=== PATIENT | female | born 1995 | race Caucasian/White ===

== ENCOUNTER 2019-07-25 11:06 | Emergency (ER) | payer OTHER ==
[2019-07-25] MEDS ORDERED: PROMETHAZINE 25 MG/ML VIAL ONE (12:26)
[2019-07-25] MEDS ORDERED: NA CHLORIDE 0.9% 1,000 ML ONE (12:26)
[2019-07-25 12:34] LABS: Basophils % 0.6 % (0-1.3); Hematocrit 41.9 % (36.0-45.0); Lymphocytes % 16.8 % (15.3-44.8); MPV 7.4 fL (7.6-11.3); RBC Red Blood Cell Count 4.87 M/uL (3.86-4.86)
[2019-07-25 12:47] LABS: Urine Bacteria <20 /HPF (<20); Urine RBC <5 /HPF (NONE SEEN)
[2019-07-25 12:48] LABS: ALT/SGPT 23 U/L (12-78); AST/SGOT 11 U/L (15-37); Albumin 3.6 g/dL (3.4-5.0); Alkaline Phosphatase 50 U/L (45-117); BUN Blood Urea Nitrogen 9 mg/dL (7-18); Bicarbonate 26 mmol/L (21-32); Bilirubin Direct 0.2 mg/dL (0-0.2); Bilirubin Total 0.7 mg/dL (0.2-1.0); Glucose Level 83 mg/dL (74-106); Potassium 3.7 mmol/L (3.5-5.1); Protein, Total 8.1 g/dL (6.4-8.2); Sodium Level 138 mmol/L (136-145)
[2019-07-25 12:49] LABS: Urine Blood NEGATIVE (NEG); Urine Glucose NEGATIVE (NEG); Urine Protein NEGATIVE (NEG); Urine Specific Gravity 1.025 (1.005-1.030); Urine pH 5.5 (5.0-7.0)
[2019-07-25 12:50] LABS: Urine Culture Reflex Order REFLEXED
--- NOTE | 2019-07-25 13:26 | ER ---
Nurse's Notes [facility] Name: Lyn Bautista Age: 24 yrs Sex: Female : 1995 Arrival Date: 07/25/2019 Time: 11:08 Bed 28 Private MD: Diagnosis: Acute bronchitis;Nausea and vomiting Presentation: 07/25 11:40 Presenting complaint: Patient states: Cough and congestion x 5 days ago with yellowish ca1 phlegm. Throat hurting and last night I started to throw up. Denies fever at this time. Took over the counter cough and colds medications. Pt vomiting in Triage. 9wks. Transition of care: patient was not received from another setting of care. Onset of symptoms was July 25, 2019. Risk Assessment: Do you want to hurt yourself or someone else? Patient reports no desire to harm self or others. Initial Sepsis Screen: Does the patient meet any 2 criteria? No. Patient's initial sepsis screen is negative. Does the patient have a suspected source of infection? No. Patient's initial sepsis screen is negative. Care prior to arrival: None. 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 - Social history:: Smoking status: Patient/guardian denies using tobacco. - Ebola Screening: : Patient negative for fever greater than or equal to 101.5 degrees Fahrenheit, and additional compatible Ebola Virus Disease symptoms Patient denies exposure to infectious person Patient denies travel to an Ebola-affected area in the 21 days before illness onset No symptoms or risks identified at this time. Screenin:00 Abuse screen: Denies threats or abuse. Nutritional screening: No deficits noted. aa5 Tuberculosis screening: No symptoms or risk factors identified. Fall Risk None identified. Assessment: 12:00 General: Appears uncomfortable, Behavior is calm, cooperative, Reports positive aa5 test yesterday and states "I think I am probably about 9 weeks " . Pain: Denies pain. Neuro: Level of Consciousness is awake, alert, obeys commands, Oriented to person, place, time, situation. Cardiovascular: Heart tones S1 S2 present Rhythm is regular. Respiratory: Reports cough that is productive, Airway is patent Respiratory effort is even, unlabored, Respiratory pattern is regular, symmetrical, Breath sounds are clear bilaterally. GI: Abdomen is round Bowel sounds present X 4 quads. Abd is soft and non tender X 4 quads. 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 : Denies burning with urination, vaginal bleeding. EENT: Reports nasal congestion. Derm: Skin is pink, warm \\T\\ dry. Musculoskeletal: Range of motion: intact in all extremities. 12:45 Reassessment: Patient is alert, oriented x 3, equal unlabored respirations, skin aa5 warm/dry/pink. Patient states feeling better. General: Appears comfortable. 13:50 Reassessment: Patient is alert, oriented x 3, equal unlabored respirations, skin aa5 warm/dry/pink. Patient states feeling better. Vital Signs: 11:46 BP 145 / 96; Pulse 111; Resp 16 S; Temp 98(TE); Pulse Ox 100% on R/A; Weight 111.13 kg ca1 (R); Height 5 ft. 1 in. (154.94 cm) (R); Pain 6/10; 13:00 BP 138 / 88; Pulse 92; Resp 16 S; Temp 98.0(TE); Pulse Ox 98% on R/A; Pain 0/10; aa5 11:46 Body Mass Index 46.29 (111.13 kg, 154.94 cm) ca1 ED Course: 11:08 Patient arrived in ED. mr 11:44 Triage completed. ca1 11:46 Arm band placed on right wrist. ca1 11:50 Kishan Emery FNP-C is PHCP. la1 11:50 Tejas Ayala MD is Attending Physician. la1 11:55 Patient has correct armband on for positive identification. Bed in low position. Call aa5 light in reach. Side rails up X 1. 11:56 Keisha Curiel, RN is Primary Nurse. aa5 12:30 Initial lab(s) drawn, by me, sent to lab. Flu and/or RSV swab sent to lab. Inserted aa5 saline lock: 20 gauge in right antecubital area, using aseptic technique. Blood collected. 13:50 No provider procedures requiring assistance completed. IV discontinued, intact, aa5 bleeding controlled, No redness/swelling at site. Pressure dressing applied. Administered Medications: 12:30 Drug: NS 0.9% 1000 ml Route: IV; Rate: 1000 ml; Site: right antecubital; aa5 13:50 Follow up: IV Status: Completed infusion; IV Intake: 1000ml aa5 12:30 Drug: Phenergan 12.5 mg Route: IVP; Site: right antecubital; aa5 12:45 Follow up: Response: No adverse reaction aa5 Intake: 13:50 IV: 1000ml; Total: 1000ml. aa5 Outcome: 13:26 Discharge ordered by MD. la1 13:50 Discharged to home ambulatory. aa5 13:50 Condition: good 13:50 Discharge instructions given to patient, Instructed on discharge instructions, follow up and referral plans. medication usage, Demonstrated understanding of instructions, follow-up care, medications, Prescriptions given X 1. 13:56 Patient left the ED. aa5 Signatures: Regina Escamilla mr CurielKeisha, RN RN aa5 Kishan Emery, REVENUE INTEGRITY ANALYST-C REVENUE INTEGRITY ANALYST-Cla1 Zahra Arteaga RN RN ca1 Corrections: (The following items were deleted from the chart) 11:47 11:40 Presenting complaint: Patient states: Cough and congestion x 5 days ago with ca1 yellowish phlegm. Throat hurting and last night I started to throw up. Denies fever at this time. Took over the counter cough and colds medications. Pt vomiting in Triage ca1
--- NOTE | 2019-07-25 13:27 | EDPHYS ---
Physician Documentation [facility] Name: Lyn Bautista Age: 24 yrs Sex: Female : 1995 Arrival Date: 07/25/2019 Time: 11:08 Bed 28 Private MD: ED Physician Tejas Ayala HPI: 07/25 12:05 This 24 yrs old Female presents to ER via Ambulatory with complaints of Flu la1 Symptoms. 12:05 Onset: The symptoms/episode began/occurred 5 day(s) ago. Associated signs and symptoms: la1 Pertinent positives: cough, nasal discharge, vomiting, Pertinent negatives: abdominal pain, earache. pt reports she has had congestion and cough for the last 5 days that has progressed to nausea and vomiting, recently found out that she is , estimated by dates to be about 9 weeks, denies vaginal discharge or bleeding. . 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 - Social history:: Smoking status: Patient/guardian denies using tobacco. - Ebola Screening: : Patient negative for fever greater than or equal to 101.5 degrees Fahrenheit, and additional compatible Ebola Virus Disease symptoms Patient denies exposure to infectious person Patient denies travel to an Ebola-affected area in the 21 days before illness onset No symptoms or risks identified at this time. ROS: 12:08 Constitutional: Negative for fever, chills, and weight loss, Eyes: Negative for injury, la1 pain, redness, and discharge, ENT: + for nasal discharge Neck: Negative for injury, pain, and swelling, Respiratory: + for cough, SOB Abdomen/GI: + for abd pain, vomiting Back: Negative for injury and pain, : Negative for injury, bleeding, discharge, and swelling, MS/Extremity: Negative for injury and deformity, Neuro: Negative for headache, weakness, numbness, tingling, and seizure. Exam: 12:08 Constitutional: This is a well developed, well nourished patient who is awake, alert, la1 and in no acute distress. Head/Face: Normocephalic, atraumatic. Eyes: Pupils equal round and reactive to light, extra-ocular motions intact. Periorbital areas with no swelling, redness, or edema. ENT: Oropharynx with no redness, swelling, or masses, exudates, or evidence of obstruction, uvula midline. Mucous membranes moist. Neck: Supple, full range of motion without nuchal rigidity, or vertebral point tenderness. No Meningismus. Chest/axilla: Normal chest wall appearance and motion. Nontender with no deformity. No lesions are appreciated. Cardiovascular: Regular rate and rhythm with a normal S1 and S2. No gallops, murmurs, or rubs. Normal PMI, no JVD. No pulse deficits. Respiratory: Lungs have equal breath sounds bilaterally, clear to auscultation No rales, rhonchi or wheezes noted. No increased work of breathing, no retractions or nasal flaring. Abdomen/GI: Soft, non-tender, with normal bowel sounds. No distension or tympany. No guarding or rebound. No evidence of tenderness throughout. Back: No spinal tenderness. No costovertebral tenderness. Full range of motion. Skin: Warm, dry with normal turgor. Normal color with no rashes, no lesions, and no evidence of cellulitis. MS/ Extremity: Pulses equal, no cyanosis. Neurovascular intact. Full, normal range of motion. Vital Signs: 11:46 BP 145 / 96; Pulse 111; Resp 16 S; Temp 98(TE); Pulse Ox 100% on R/A; Weight 111.13 kg ca1 (R); Height 5 ft. 1 in. (154.94 cm) (R); Pain 6/10; 13:00 BP 138 / 88; Pulse 92; Resp 16 S; Temp 98.0(TE); Pulse Ox 98% on R/A; Pain 0/10; aa5 11:46 Body Mass Index 46.29 (111.13 kg, 154.94 cm) ca1 MDM: 11:50 Patient medically screened. la1 13:23 Data reviewed: vital signs, nurses notes, lab test result(s), Beta HCG: CBC, la1 electrolytes, urinalysis, and as a result, I will discharge patient. Data interpreted: Pulse oximetry: on room air is 100 %. Interpretation: normal. Counseling: I had a detailed discussion with the patient and/or guardian regarding: the historical points, exam findings, and any diagnostic results supporting the discharge/admit diagnosis, lab results, the need for outpatient follow up, a family practitioner, an OB/Gyne specialist. Medication response: phenergan. Response to treatment: the patient's symptoms have markedly improved after treatment. ED course: Pt feeling much better after phenergan, will FU with OB, denies any abd pain, bleeding, or discharge, no UTI.. 07/25 11:57 Order name: CBC with Diff; Complete Time: 13:00 la1 07/25 11:57 Order name: BMP; Complete Time: 13:00 la1 07/25 11:57 Order name: Urine Microscopic Only; Complete Time: 13:00 la1 07/25 11:57 Order name: Flu; Complete Time: 13:00 la1 07/25 11:57 Order name: LFT's; Complete Time: 13:00 la1 07/25 12:29 Order name: Urine Dipstick--Ancillary (enter results); Complete Time: 13:00 07/25 11:57 Order name: Urine Dipstick-Ancillary (obtain specimen); Complete Time: 12:22 la1 07/25 11:57 Order name: Urine Test (obtain specimen); Complete Time: 12:22 la1 07/25 12:29 Order name: Urine --Ancillary (enter results); Complete Time: 13:00 07/25 12:50 Order name: Urine Culture EDNM 07/25 12:53 Order name: Urine Culture EDNM 07/25 11:57 Order name: SL; Complete Time: 12:22 la Administered Medications: 12:30 Drug: NS 0.9% 1000 ml Route: IV; Rate: 1000 ml; Site: right antecubital; aa5 13:50 Follow up: IV Status: Completed infusion; IV Intake: 1000ml aa5 12:30 Drug: Phenergan 12.5 mg Route: IVP; Site: right antecubital; aa5 12:45 Follow up: Response: No adverse reaction aa5 Disposition: 14:30 Co-signature as Attending Physician, Tejas Ayala MD. rn Disposition: 07/25/19 13:26 Discharged to Home. Impression: Acute bronchitis, Nausea and vomiting. - Condition is Stable. - Discharge Instructions: Acute Bronchitis, Adult, Nausea and Vomiting, Adult, Rehydration, Adult. - Prescriptions for promethazine 25 mg Oral Tablet - take 1 tablet by ORAL route every 6 hours As needed; 20 tablet. - Work release form, Medication Reconciliation Form, Thank You Letter form. - Follow up: Private Physician; When: 2 - 3 days; Reason: Recheck today's complaints, Re-evaluation by your physician. Follow up: Emergency Department; When: As needed; Reason: Trouble breathing, Worsening of condition, severe abd pain, vaginal bleeding. - Problem is new. - Symptoms have improved. Signatures: Dispatcher [employer] EDMS Tejas Ayala MD MD rn Calderon, Audri RN RN aa5 Kishan Emery, MICROMATIC HONE OPERATOR-C MICROMATIC HONE OPERATOR-Cla1 Zahra Arteaga RN RN ca1 Corrections: (The following items were deleted from the chart) 12:46 11:57 FHT's ordered. la1 aa5 13:56 13:26 07/25/2019 13:26 Discharged to Home. Impression: Acute bronchitis; Nausea and aa5 vomiting. Condition is Stable. Forms are Medication Reconciliation Form, Thank You Letter, Antibiotic Education, Prescription Opioid Use. Follow up: Private Physician; When: 2 - 3 days; Reason: Recheck today's complaints, Re-evaluation by your physician. Follow up: Emergency Department; When: As needed; Reason: Trouble breathing, Worsening of condition, severe abd pain, vaginal bleeding. Problem is new. Symptoms have improved. la1
== END 2019-07-25 13:56 | disposition home or self-care (01) ==
LOC: ER 11:06
DX: O21.9 Vomiting of pregnancy, unspecified (principal); Z3A.09 9 weeks gestation of pregnancy; Z88.2 Allergy status to sulfonamides; Z88.5 Allergy status to narcotic agent; Z88.8 Allergy status to other drugs, medicaments and biological substances
CPT/HCPCS: 96361; 87088; 85025; 87086; 80048; 36415; 81025; 80076; 87804 ×2; 96374; 99284; J2550; J7030; 81003; 81015

== ENCOUNTER 2019-10-09 17:58 | Emergency (ER) | payer BC, OTHER ==
--- OUTSIDE RECORDS SUMMARY | 2019-10-09 18:14 | XMS REPORT | Encounter Summary ---
:1995 Author Reason for Visit OB 16 week visit; NOB Instructions 1. screening US, obstetric, limited US, obstetric, maternal evaluation + anatomy - Please schedule in 4 weeks afp (alpha-fetoprotein) panel, maternal screen, serum urinalysis, dipstick pap, IG + reflex HPV if ASC-U CT + NG DNA, PCR, unspecified specimen HbA1c (hemoglobin A1c), blood 2. Mild hyperemesis-not delivered folic acid 1 mg tablet Reglan 10 mg tablet 3. Elevated blood-pressure reading without diagnosis of hypertension elevated blood pressure: care instructions CMP, serum or plasma protein, total, 24-hour urine CBC w/ auto diff Discussion Note: None recorded. Plan of Care Reminders Provider Appointments Follow up OB Sadaf Stahl 11/03/2019 MD Jerrod 10:15AM Lab Afp [facility] (Alpha-fetoprotein) 10/06/2019 [facility] (Lab) Panel, Maternal Screen, Serum Urinalysis, In-House Results Dipstick 10/06/2019 Pap, IG + Medical Diagnostic Reflex HPV If ASC-U 10/06/2019 [facility] (Mdlab) CT + NG DNA, Medical Diagnostic PCR, Unspecified 10/06/2019 [facility] (Mdlab) Specimen CMP, Serum or [facility] Plasma 10/06/2019 [facility] (Labs) (Xray) Protein, [facility] Total, 24-Hour Urine 10/06/2019 [facility] (Labs) (Xray) CBC W/ Auto [facility] Diff 10/06/2019 [facility] (Labs) (Xray) HbA1C [facility] (Hemoglobin a1C), Blood 10/06/2019 [facility] (Labs) (Xray) Referral None recorded. Procedures None recorded. Surgeries None recorded. Imaging US, Obstetric, In-House Results Limited 10/06/2019 US, Obstetric, [facility] Maternal 10/06/2019 [facility] Evaluation + (Scheduling) Anatomy Medications Name Start Date Children's Multi-Vitamin Gummies 200 mcg chewable tablet Take by oral route. folic acid 1 mg tablet Take 1 tablet every day by oral route as directed for 30 days. Prenatabs Rx 29 mg iron-1 mg tablet Reglan 10 mg tablet Take 1 tablet 4 times a day by oral route as directed for 15 days. Medications Administered None recorded. Vitals Height Weight BMI Blood Pressure 5 ft 1 in 249.7 lbs 47.2 kg/m2 (1) 146/94 mm[Hg] (2) 149/91 mm[Hg] Results Lab Results Date Name Specimen Result Interpretation Description Value Range Status Address 09/21/2019 CBC W/ Auto Normal White 8.4 K/uL 4.0-11.5 Final [facility] Diff Blood Count K/uL [facility] (Lab): [address] [place] [address] Normal Red Blood 4.65 M/uL 3.80-5.20 Final [facility] Count M/uL [facility] (Lab): [address] [place] [address] Normal Hemoglobin 14.0 g/dL 10.5-15.7 Final [facility] g/dL [facility] (Lab): [address] [place] [address] Normal Hematocrit 40.2 % 34.0-50.0 % Final [facility] (Lab): [address] [place] [address] Normal Mean 86.5 fL 86-100 fL Final [facility] Corpuscular [facility] Volume [facility] (Lab): [address] [place] [address] Normal Mean 30.1 pg 26.2-33.4 pg Final [facility] Corpuscular Regional Hemoglobin [facility] (Lab): [address] [place] [address] High Mean 34.8 g/dL 30-34 g/dL Final [facility] HGB [facility] (Lab): [address] [place] [address] Normal Red Cell 13.3 % 12.0-15.5 % Final [facility] Distributio [facility] n [facility] (Lab): [address] [place] [address] Normal Platelet 330 K/uL 165-450 K/uL Final [facility] Count [facility] (Lab): [address] [place] [address] Normal Mean 9.5 fL 9.4-12.6 fL Final [facility] Platelet [facility] (Lab): [address] [place] [address] Normal Neutrophil 72.6 % 44.4-80.1 % Corrected [facility] s % [facility] (Lab): [address] [place] [address] Normal Ig% 0.2 % 0.0-0.4 % Corrected [facility] (Lab): [address] [place] [address] Normal Lymphocyte 19.7 % 10.0-50.0 % Final [facility] % [facility] (Lab): [address] [place] [address] [place] % 6.7 % 3.6-12.0 % Final [facility] (Lab): [address] [place] [address] Normal Eos % 0.6 % 0.0-5.4 % Final [facility] (Lab): [address] [place] [address] Normal Basophil % 0.2 % 0.1-1.2 % Final [facility] (Lab): [address] [place] [address] Normal Absolute 6.07 K/uL 1.56-6.13 Final [facility] Neutrophil K/uL [facility] Count [facility] (Lab): [address] [place] [address] Normal Ig# 0.0 K/uL 0.0-0.03 Corrected [facility] K/uL [facility] (Lab): [address] [place] [address] Normal Lymph # 1.7 K/uL 1.18-3.74 Corrected [facility] K/uL [facility] (Lab): [address] [place] [address] [place] # 0.56 K/uL 0.24-0.86 Final [facility] K/uL [facility] (Lab): [address] [place] [address] Normal Eos # 0.05 K/uL 0.04-0.36 Final [facility] K/uL [facility] (Lab): [address] [place] [address] Normal Basophil # 0.02 K/uL 0.01-0.08 Corrected [facility] K/uL [facility] (Lab): [address] [place] [address] Normal Nrbc% 0 /100 WBC 0-0.2 /100 Final [facility] WBC [facility] (Lab): [address] [place] [address] Normal Nrbc# 0 K/uL 0 K/uL Final [facility] (Lab): [address] [place] [address] 09/21/2019 HIV (1+2) Normal HIV P24 Ag nonreactive Final [facility] Ab Screen, [facility] (Lab): [address] [place] [address] Normal HIV-1/2 Ab nonreactive Final [facility] (Lab): [address] [place] [address] 09/21/2019 RPR (Rapid Normal Rpr nonreactiv nonreactive Final [facility] Plasma e [facility] Reagin)[facility] [place] (Lab): [address] [place] [address] 09/21/2019 Abo Group + Rh Bld 4+ Final [facility] Rh Type, [facility] (Lab): [address] [place] [address] ABO + Rh A positive Final [facility] Pnl Bld [facility] (Lab): [address] [place] [address] 09/21/2019 Antibody Bld Gp Ab positive Final [facility] Screen, [facility] Serum or [facility] (Lab): [address] [place] [address] 09/21/2019 HBsAg Normal .Hepatitis negative negative Final [facility] (Hepatitis B Surface [facility] B Surface Antigen Medical Ag), [facility] (Lab): [address] [place] [address] 09/21/2019 Culture, Bacteria Final [facility] Urine Ur Cult [facility] (Lab): [address] [place] [address] 09/21/2019 Chromosome Normal Report see notes Final Alic[facility]: 201 13+18+21+X+ Summary [address], Aneuploidy, [place] Blood Normal Report see notes Final [facility]: [address], [place] Normal Trisomy 13 Final [facility]: 201 Age-based [address] Risk [address], [place] Normal Trisomy 13 Final [facility]: [address], [place] Normal Trisomy 13 <1/10,000 Final [facility]: 201 Age-based (<0.01%) [address], [place] Normal Trisomy 13 <1/10,000 Final [facility]: 201 Risk Score (<0.01%) [address], [place] Normal Trisomy 13 Final [facility]ia: 201 Age-based [address] Risk [address], Fraction [place] Normal Trisomy 13 Final [facility]: [address], [place] Normal Trisomy 13 low risk Final [facility]: [address], [place] Normal Trisomy 13 see notes Final [facility]: [address], [place] Normal Trisomy 18 Final [facility]ia: 201 Age-based [address], [place] Normal Trisomy 18 Final [facility]: [address], [place] Normal Trisomy 18 Final [facility]ia: 201 Age-based (0.02%) [address], [place] Normal Trisomy 18 <1/10,000 Final [facility]ia: 201 Risk Score (<0.01%) [address], [place] Normal Trisomy 18 Final [facility]ia: 201 Age-based [address], Fraction [place] Normal Trisomy 18 Final [facility]: [address], [place] Normal Trisomy 18 low risk Final [facility]: [address], [place] Normal Trisomy 18 see notes Final [facility]: [address], [place] Normal Trisomy 21 Final [facility]ia: 201 Age-based [address], [place] Normal Trisomy 21 Final [facility]: [address], [place] Normal Trisomy 21 147 Final [facility]ia: 201 Age-based (0.09%) [address], [place] Normal Trisomy 21 <1/10,000 Final [facility]: 201 Risk Score (<0.01%) [address], [place] Normal Trisomy 21 Final [facility]ia: 201 Age-based [address], Fraction [place] Normal Trisomy 21 Final [facility]: [address], [place] Normal Trisomy 21 low risk Final [facility]: [address], [place] Normal Trisomy 21 see notes Final [facility]: [address], [place] Normal Monosomy X Final [facility]: 201 Age-based [address], [place] Normal Monosomy X Final [facility]: [address], [place] Normal Monosomy X Final [facility]: 201 Age-based (0.18%) [address], [place] Normal Monosomy X <1/10,000 Final [facility]ia: 201 Risk Score (<0.01%) [address], [place] Normal Monosomy X Final [facility]: 201 Age-based [address], Fraction [place] Normal Monosomy X Final [facility]: [address], [place] Normal Monosomy X low risk Final [facility]: [address], [place] Normal Monosomy X see notes Final [facility]: [address], [place] Normal 22Q11.2 Final [facility]ia: [address], Population- [place] based Risk Score Normal 22Q11.2 Final [facility]: [address], Population- [place] based Risk Text Normal 22Q11.2 Final Alicia: [address], Risk Score [place] Normal 22Q11.2 Final Alicia: [address], Risk Score [place] Text Normal 22Q11.2 low risk Final [facility]: [address], Result Text [place] Normal 22Q11.2 see notes Final [facility]ia: [address], Result [place] Interpretat ion Normal Prader-hay Final [facility]ia: 201 li Syndrome [address] Population- [address], based Risk [place] Score Normal Prader-hay Final [facility]ia: 201 li Syndrome [address] Population- [address], based Risk [place] Text Normal Prader-hay Final Alicia: [address] li Syndrome [address], [place] Normal Prader-hay Final Alicia: 201 li Syndrome [address], Text [place] Normal Prader-hay low risk Final [facility]: 201 li Syndrome [address], [place] Normal Prader-hay see notes Final [facility]ia: [address], Interpretat [place] ion Angelman Final Alicia: [address] Syndrome [address], based Risk [place] Score Angel[place] Final [facility]ia: [address] Syndrome [address], based Risk [place] Text Angel[place] Final [facility]ia: [address], [place] Angelman Final [facility]ia: [address], Text [place] Angelman risk Final [facility]ia: 201 Syndrome unchanged [address], [place] Angelman unable to Final Alicia: 201 Syndrome further [address], Interpretat risk. [place] ion Normal Cri-du-karla Final [facility]: 201 t Syndrome [address]- [address], based Risk [place] Score Normal Cri-du-karla Final [facility]ia: 201 t Syndrome [address] Population- [address], based Risk [place] Text Normal Cri-du-karla Final [facility]ia: [address] t Syndrome [address], [place] Normal Cri-du-karla Final [facility]ia: [address] t Syndrome [address], Text [place] Normal Cri-du-karla low risk Final Alicia: 201 t Syndrome [address], [place] Normal Cri-du-karla see notes Final [facility]ia: [address], Interpretat [place] ion Normal 1P36 Final Alicia: [address], Population- [place] based Risk Score Normal 1P36 Final Alicia: [address], Population- [place] based Risk Text Normal 1P36 Final Alicia: [address], Risk Score [place] Normal 1P36 Final Alicia: [address], Risk Score [place] Text Normal 1P36 low risk Final Alicia: [address], Result Text [place] Normal 1P36 see notes Final Alicia: [address], Result [place] Interpretat ion Normal Triploidy low risk Final [facility]ia: [address], [place] Normal Triploidy see notes Final [facility]ia: [address], [place] Gender of male Final Alicia: [address], [place] 5.3 % Final Alicia: [address] (in %) [address], [place] 5.3% Final Alicia: [address], [place] Footnotes see notes Final Alicia: [address], [place] Boiler see notes Final [facility]ia: [address], [place] References see notes Final Alicia: [address], [place] Approvals see notes Final Alicia: [address], [place] Contacts see notes Final [facility]ia: [address], [place] 09/21/2019 Chromosome No Alicia: 201 13+18+21+X+ observation [address], Aneuploidy, [place] Blood US, No In-House Obstetric, observation Results: Limited recorded. For Internal Use Only positive In-House Test, Urine Test Results: For Internal Use Only Allergies Code Code System Name Reaction Severity Status Onset 297519 RxNorm Dilaudid Active 5489 RxNorm Hydrocodone Active 7052 RxNorm Morphine Active Sulfa Active (Sulfonamide Antibiotics) Problems Name Status Onset Date Source Active 09/21/2019 Hyperemesis Active 10/06/2019 Procedures Date Name Performed by Procedure on Adenoids Information not available Cholecystectomy Information not available 09/21/2019 US, Obstetric, Limited [facility] ( Scheduling) [address] [place], [place] [phone] (Work Place) 09/21/2019 US, Obstetric, Maternal [facility] ( Scheduling) Evaluation + Anatomy [address] [place], [place] [phone] (Work Place) 10/06/2019 US, Obstetric, Limited In-House Results For Internal Use Only [address] 10/06/2019 US, Obstetric, Maternal [facility] ( Scheduling) Evaluation + Anatomy [address] [place], [place] [id number] (Work Place) Vaccine List None recorded. Social History Tobacco Smoking Status Never Smoker Past Encounters 10/06/2019 Screening; Mild Hyperemesis-not Delivered; Elevated Blood-pressure Reading without Diagnosis of Hypertension Sadaf Elder MD: [address] [facility] [address] [place] [address] [phone], Ph. [phone] 09/21/2019 Amenorrhea; Screening; Routine Care; On Examination - Heart Not [place] Sadaf Elder MD: [address] [facility] [address], [place] [address], Ph. [phone] History of Present Illness None recorded. Review of Systems None recorded. Physical Exam Initial OB Reported By: Patient General Appearance: General Appearance: no acute distress, obese Skin: Appearance: no rashes, no lesions Neck: Thyroid: no enlargement, no nodules, non-tender Lymph Nodes: Palpation: non tender submandibular nodes, non tender axillary nodes, non tender inguinal nodes Cardiovascular System: Auscultation: RRR, no murmur, no gallops. Legs: no LLE edema, no RLE edema, no varicosities, no calf tenderness, no palpable cords Lungs: Auscultation: no wheezing, no rales / crackles, no rhonchi Breast: Breast: no skin changes, no abnormal secretions, no tenderness, no discrete/distinct masses, no axillary lymphadenopathy Abdomen: Auscultation/Inspection/Palpation: bowel sounds present, soft, non-distended, no tenderness/guarding/rebound, no hepatomegaly, no splenomegaly, no masses, no CVA tenderness. Hernia: none palpated Female Genitalia: Vulva: grossly normal, no lesions. Vagina no abnormal vaginal discharge, no blood in vaginal vault. Cervix: grossly normal, no discharge, no cervical motion tenderness. Uterus: size appropriate for gestational age, regular contour, mobile. Adnexae: no masses palpated, no tenderness Rectal Exam: Rectum: normal perianal skin, normal sphincter tone, no hemorrhoids, no masses
--- OUTSIDE RECORDS SUMMARY | 2019-10-09 18:14 | XMS REPORT | Encounter Summary ---
[...] Stahl 11/03/2019 MD Jerrod 10:15AM Lab Afp [facility] [place] [facility] (Alpha-fetoprotein) 10/06/2019 [facility] (Lab) Panel, Maternal Screen, Serum Urinalysis, In-House Results Dipstick 10/06/2019 Pap, IG + Medical Diagnostic Reflex HPV If ASC-U 10/06/2019 Laboratories (Mdlab) CT + NG DNA, Medical Diagnostic PCR, Unspecified 10/06/2019 Laboratories (Mdlab) Specimen CMP, Serum or [facility] Plasma 10/06/2019 [facility] (Labs) (Xray) Protein, [facility] Total, 24-Hour Urine 10/06/2019 [facility] (Labs) (Xray) CBC W/ Auto [facility] Diff 10/06/2019 [facility] (Labs) (Xray) HbA1C [facility] (Hemoglobin a1C), Blood 10/06/2019 [facility] (Labs) (Xray) Referral None recorded. Procedures None recorded. Surgeries None recorded. Imaging US, Obstetric, In-House Results Limited 10/06/2019 US, Obstetric, [facility] Maternal 10/06/2019 Medical Center Evaluation + [...] Auto Normal White 8.4 K/uL 4.0-11.5 Final [place] Diff Blood Count K/uL [facility] (Lab): [address] [place] [address] Normal Red Blood 4.65 M/uL 3.80-5.20 Final [place] Count M/uL [facility] (Lab): [address] [place] [address] Normal Hemoglobin 14.0 g/dL 10.5-15.7 Final [place] g/dL [facility] (Lab): [address] [place] [address] Normal Hematocrit 40.2 % 34.0-50.0 % Final [place] [facility] (Lab): [address] [place] [address] Normal Mean 86.5 fL 86-100 fL Final [place] Corpuscular [facility] Volume [facility] (Lab): [address] [place] [address] Normal Mean 30.1 pg 26.2-33.4 pg Final [place] Corpuscular [facility] Hemoglobin [facility] (Lab): [address] [place] [address] High Mean 34.8 g/dL 30-34 g/dL Final [place] [facility] (Lab): [address] [place] [address] Normal Red Cell 13.3 % 12.0-15.5 % Final [place] Distributio [facility] n [facility] (Lab): [address] [place] [address] Normal Platelet 330 K/uL 165-450 K/uL Final [place] Count [facility] (Lab): [address] [place] [address] Normal Mean 9.5 fL 9.4-12.6 fL Final [place] Platelet [facility] (Lab): [address] [place] [address] Normal Neutrophil 72.6 % 44.4-80.1 % Corrected [place] s % [facility] (Lab): [address] [place] [address] Normal Ig% 0.2 % 0.0-0.4 % Corrected [place] [facility] (Lab): [address] [place] [address] Normal Lymphocyte 19.7 % 10.0-50.0 % Final [place] % [facility] (Lab): [address] [place] [address] Normal [place] % 6.7 % 3.6-12.0 % Final [place] [facility] (Lab): [address] [place] [address] Normal Eos % 0.6 % 0.0-5.4 % Final [place] [facility] (Lab): [address] [place] [address] Normal Basophil % 0.2 % 0.1-1.2 % Final [place] [facility] (Lab): [address] [place] [address] Normal Absolute 6.07 K/uL 1.56-6.13 Final [place] Neutrophil K/uL [facility] Count [facility] (Lab): [address] [place] [address] Normal Ig# 0.0 K/uL 0.0-0.03 Corrected [place] K/uL [facility] (Lab): [address] [place] [address] Normal Lymph # 1.7 K/uL 1.18-3.74 Corrected [place] K/uL [facility] (Lab): [address] [place] [address] Normal [place] # 0.56 K/uL 0.24-0.86 Final [place] K/uL [facility] (Lab): [address] [place] [address] Normal Eos # 0.05 K/uL 0.04-0.36 Final [place] K/uL [facility] (Lab): [address] [place] [address] Normal Basophil # 0.02 K/uL 0.01-0.08 Corrected [place] K/uL [facility] (Lab): [address] [place] [address] Normal Nrbc% 0 /100 WBC 0-0.2 /100 Final [place] WBC [facility] (Lab): [address] [place] [address] Normal Nrbc# 0 K/uL 0 K/uL Final [place] [facility] (Lab): [address] [place] [address] 09/21/2019 HIV (1+2) Normal HIV P24 Ag nonreactive Final [place] Ab Screen, [facility] (Lab): [address] [place] [address] Normal HIV-1/2 Ab nonreactive Final [place] [facility] (Lab): [address] [place] [address] 09/21/2019 RPR (Rapid Normal Rpr nonreactiv nonreactive Final [place] Plasma e [facility] Reagin)[facility] Serum [place] (Lab): [address] [place] [address] 09/21/2019 Abo Group + Rh Bld 4+ Final [place] Rh Type, [facility] (Lab): [address] [place] [address] ABO + Rh A positive Final [place] Pnl Bld [facility] (Lab): [address] [place] [address] 09/21/2019 Antibody Bld Gp Ab positive Final [place] Screen, [facility] Serpl [facility] Serum or [facility] (Lab): [address] [place] [address] 09/21/2019 HBsAg Normal .Hepatitis negative negative Final [place] (Hepatitis B Surface [facility] B Surface Antigen Medical Ag), [facility] (Lab): [address] [place] [address] 09/21/2019 Culture, Bacteria Final [place] Urine Ur Cult [facility] (Lab): [address] [place] [address] 09/21/2019 Chromosome Normal Report see notes Final Alicia: 201 13+18+21+X+ Summary [address], Aneuploidy, Koi Blood Normal Report see notes Final [place]: [address], [place]oi Normal Trisomy 13 Final [place]: 201 Age-based Industrial Risk [address], Koi Normal Trisomy 13 Final [place]: [address], Koi Normal Trisomy 13 <1/10,000 Final [place]: 201 Age-based (<0.01%) [address], Koi Normal Trisomy 13 <1/10,000 Final [place]: 201 Risk Score (<0.01%) [address], Koi Normal Trisomy 13 Final [place]: 201 Age-based Industrial Risk [address], Fraction Koi Normal Trisomy 13 Final [place]: [address], Koi Normal Trisomy 13 low risk Final [place]: [address], Koi Normal Trisomy 13 see notes Final [place]: [address], Koi Normal Trisomy 18 Final [place]: 201 Age-based [address] Risk [address], Koi Normal Trisomy 18 Final [place]: [address], Koi Normal Trisomy 18 Final [place]: 201 Age-based (0.02%) [address], Koi Normal Trisomy 18 <1/10,000 Final [place]: 201 Risk Score (<0.01%) [address], Koi Normal Trisomy 18 Final [place]: 201 Age-based [address] Risk [address], Fraction Koi Normal Trisomy 18 Final [place]: [address], Koi Normal Trisomy 18 low risk Final [place]: [address], Koi Normal Trisomy 18 see notes Final [place]: [address], Koi Normal Trisomy 21 Final [place]: 201 Age-based [address], Koi Normal Trisomy 21 Final [place]: [address], Koi Normal Trisomy 21 147 Final [place]: 201 Age-based (0.09%) [address], Koi Normal Trisomy 21 <1/10,000 Final [place]: 201 Risk Score (<0.01%) [address], Koi Normal Trisomy 21 Final [place]: 201 Age-based [address] Risk [address], Fraction Koi Normal Trisomy 21 Final [place]: [address], Koi Normal Trisomy 21 low risk Final [place]: [address], Koi Normal Trisomy 21 see notes Final [place]: [address], Koi Normal Monosomy X Final [place]: 201 Age-based [address], Koi Normal Monosomy X Final [place]: [address], Koi Normal Monosomy X Final [place]: 201 Age-based (0.18%) [address], Koi Normal Monosomy X <1/10,000 Final [place]: 201 Risk Score (<0.01%) [address], Koi Normal Monosomy X Final [place]: 201 Age-based [address], Fraction Koi Normal Monosomy X Final [place]: [address], Koi Normal Monosomy X low risk Final [place]: [address], Koi Normal Monosomy X see notes Final [place]: [address], Koi Normal 22Q11.2 Final [place]: [address], Population- Koi based Risk Score Normal 22Q11.2 Final [place]: [address], Population- Koi based Risk Text Normal 22Q11.2 Final [place]: [address], Risk Score Koi Normal 22Q11.2 Final [place]: [address], Risk Score Koi Text Normal 22Q11.2 low risk Final [place]: [address], Result Text Koi Normal 22Q11.2 see notes Final [place]: [address], Result Koi Interpretat ion Normal Prader-hay Final [place]: 201 li Syndrome [address] Population- [address], based Risk Koi Score Normal Prader-hay Final [place]: 201 li Syndrome [address] Population- [address], based Risk Koi Text Normal Prader-hay Final [place]: [address] li Syndrome [address], Koi Normal Prader-hay Final [place]: 201 li Syndrome [address], Text Koi Normal Prader-hay low risk Final [place]: 201 li Syndrome [address], Koi Normal Prader-hay see notes Final [place]: [address], Interpretat Koi ion Angelman Final [facility]ia: [address], based Risk Koi Score Angelman Final [place]: [address], based Risk Koi Text Angelman Final [place]ia: [address], Koi Angelman Final [place]: [address], Text Koi Angelman risk Final [place]: 201 Syndrome unchanged [address], Koi Angelman unable to Final [place]: 201 Syndrome further [address] refine [address], Interpretat risk. Koi ion Normal Cri-du-karla Final [place]: 201 t Syndrome [address], based Risk Koi Score Normal Cri-du-karla Final [place]: 201 t Syndrome [address] Population- [address], based Risk Koi Text Normal Cri-du-karla Final [place]: 201 t Syndrome [address], Koi Normal Cri-du-karla Final [place]ia: 201 t Syndrome [address], Text Koi Normal Cri-du-karla low risk Final [place]: 201 t Syndrome [address], Koi Normal Cri-du-karla see notes Final [place]: [address], Interpretat Koi ion Normal 1P36 Final [place]: [address], Population- Koi based Risk Score Normal 1P36 Final [place]: [address], Population- Koi based Risk Text Normal 1P36 Final [place]: [address], Risk Score Koi Normal 1P36 Final [place]: [address], Risk Score Koi Text Normal 1P36 low risk Final [place]: [address], Result Text Koi Normal 1P36 see notes Final [place]: [address], Result Koi Interpretat ion Normal Triploidy low risk Final [place]: [address], Koi Normal Triploidy see notes Final [place]: [address], Koi Gender of male Final [place]ia: [address], Koi 5.3 % Final [place]: [address] (in %) [address], Koi 5.3% Final [place]: [address], Koi Footnotes see notes Final [place]: [address], Koi Boiler see notes Final [place]: [address], Koi References see notes Final [place]: [address], Koi Approvals see notes Final [place]: [address], Koi Contacts see notes Final [place]: [address], Koi 09/21/2019 Chromosome No [place]: 201 13+18+21+X+ observation [address], Aneuploidy, Koi Blood US, No In-House Obstetric, observation Results: Limited recorded. For Internal Use Only positive In-House Test, Urine Test Results: For Internal Use Only Allergies Code Code System Name Reaction Severity Status Onset 408684 RxNorm Dilaudid Active 5489 RxNorm Hydrocodone Active 7052 RxNorm Morphine Active Sulfa Active (Sulfonamide Antibiotics) Problems Name Status Onset Date Source Active 09/21/2019 Hyperemesis Active 10/06/2019 Procedures Date Name Performed by Procedure on Adenoids Information not available Cholecystectomy Information not available 09/21/2019 US, Obstetric, Limited [facility] ( Scheduling) [address] [place], [place] [phone] (Work Place) 09/21/2019 US, Obstetric, Maternal [facility] ( Scheduling) Evaluation + Anatomy [address] [place], [place] [phone] (Work Place) 10/06/2019 US, Obstetric, Limited In-House Results For Internal Use Only 04996 10/06/2019 US, Obstetric, Maternal [facility] ( Scheduling) Evaluation + Anatomy [address] [place], [place] [phone] (Work Place) Vaccine List None recorded. Social History Tobacco Smoking Status Never Smoker Past Encounters 10/06/2019 Screening; Mild Hyperemesis-not Delivered; Elevated Blood-pressure Reading without Diagnosis of Hypertension Sadaf Elder MD: [address] [facility] [address] [place] [id number], Ph. [phone] 09/21/2019 Amenorrhea; Screening; Routine Care; On Examination - Heart Not [place] Sadaf Elder MD: [address] [facility] [address], [place] [address], Ph. [phone] History of Present Illness None recorded. Review of Systems None recorded. Physical Exam Initial OB Reported By: Patient
--- OUTSIDE RECORDS SUMMARY | 2019-10-09 18:14 | XMS REPORT | Encounter Summary ---
:1995 Author Reason for Visit OB Intake Instructions 1. Amenorrhea test, urine 2. screening HIV (1+2) Ab screen, serum RPR (rapid plasma reagin), serum HBsAg (hepatitis B surface Ag), serum CBC w/ auto diff abo group + rh type, blood drug screen, urine culture, urine antibody screen, serum or plasma rubella Ab, titer, serum US, obstetric, maternal evaluation + anatomy - Please schedule patient in 2 weeks for ob anatomy ultrasound....cg 3. 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 Risks, benefits, and details of Horizon and Panorama screening reviewed. Advised her to take vitamins as tolerated , eat small frequent meals, and stay well hydrated. Asked her to call if severe cramping, bleeding, or nausea occurs. Patient educational handouts: No information available. Plan of Care Reminders Provider Appointments New OB Patient Sadaf Stahl 10/06/2019 MD Jerrod 9:30AM Lab In-House Results Test, Urine 09/21/2019 HIV (1+2) Ab [place] Screen, Serum 09/21/2019 [facility] (Lab) RPR (Rapid [place] Plasma Reagin), Serum 09/21/2019 [facility] (Lab) HBsAg [place] (Hepatitis B Surface 09/21/2019 [facility] Ag), [facility] (Lab) CBC W/ Auto [place] Diff 09/21/2019 [facility] (Lab) Abo Group + Rh [place] Type, Blood 09/21/2019 [facility] (Lab) Drug Screen, [place] Urine 09/21/2019 [facility] (Lab) Culture, Urine [place] 09/21/2019 [facility] (Lab) Antibody [place] Screen, Serum or Plasma 09/21/2019 [facility] (Lab) Rubella Ab, [place] Titer, Serum 09/21/2019 [facility] (Lab) Chromosome [place] 13+18+21+X+Y Aneuploidy, 09/21/2019 Blood Genetic [place] Screen, Unspecified 09/21/2019 Specimen Referral None recorded. Procedures None recorded. Surgeries None recorded. Imaging US, Obstetric, [place] Limited 09/21/2019 [facility] (Scheduling) US, Obstetric, [place] Maternal 09/21/2019 [facility] Evaluation + Center (Scheduling) Anatomy Medications Name Start Date Children's Multi-Vitamin Gummies 200 mcg chewable tablet Take by oral route. Prenatabs Rx 29 mg iron-1 mg tablet Medications Administered None recorded. Vitals Height Weight BMI Blood Pressure 5 ft 1 in 254 lbs 48 kg/m2 137/76 mm[Hg] Results Lab Results Date Name Specimen Result Interpretation Description Value Range Status Address positive In-House Test, Urine Test Results: For Internal Use Only Allergies Code Code System Name Reaction Severity Status Onset 263145 RxNorm Dilaudid Active 5489 RxNorm Hydrocodone Active 7052 RxNorm Morphine Active Sulfa Active (Sulfonamide Antibiotics) Problems Name Status Onset Date Source Active 09/21/2019 Procedures Date Name Performed by Procedure on Adenoids Information not available Cholecystectomy Information not available 09/21/2019 , Obstetric, Limited [facility] ( Scheduling) [address] [place] [address] (Work Place) 09/21/2019 US, Obstetric, Maternal [facility] ( Scheduling) Evaluation + Anatomy [address] [place], [place] [phone] (Work Place) Vaccine List None recorded. Social History Tobacco Smoking Status Never Smoker Past Encounters 09/21/2019 Amenorrhea; Screening; Routine Care; On Examination - Heart Not [place] Sadaf Elder MD: [address] [place] [address] [address], [place], [place] [phone], Ph. [phone] History of Present Illness Note: ob intake...cg Review of Systems BUS GIRL ROS Reported By: Patient Constitutional: Constitutional: no fatigue, no fever, no significant weight gain, no significant weight loss Skin: Skin: no abnormal moles, no rashes Eyes: Eyes: no irritation, no vision changes ENMT: ENMT: no hearing loss, no ear pain, no nose/sinus problems, no sore throat, no snoring, no dry mouth, no mouth ulcers Respiratory: Respiratory: no dyspnea / shortness of breath, no cough, no sputum production, no hemoptysis, no wheezing Cardiovascular: Cardiovascular: no chest pain, no palpitations, no orthopnea Gastrointestinal: Gastrointestinal: no heartburn, no dysphagia, no nausea, no vomiting, no abdominal pain, no bowel movement changes, no diarrhea, no constipation, no rectal bleeding Genitourinary: Genitourinary: no hematuria, no abnormal bleeding, no flank pain, no trouble urinating, no incontinence, no rash, no lesion, no discharge, no vaginal odor, no vaginal itching Endocrine: Menstrual: no menstrual problems, no PMDD symptoms. Menopausal: no menopausal symptoms. Sexual: no sexual problems Musculoskeletal: Musculoskeletal: no muscle aches, no muscle weakness, no arthralgias/joint pain, no back pain Neurological: Neurologic: no headaches, no dizziness, no LOC, no weakness, no numbness, no seizures Psychological: Psych: no depression, no alcoholism, no sleep disturbances Physical Exam None recorded.
[2019-10-09] MEDS ORDERED: DIPHENHYDRAMINE 50 MG/ML VIAL ONE (18:23)
[2019-10-09] MEDS ORDERED: METHYLPREDNISOLONE 125 MG INJ ONE (18:23)
[2019-10-09] MEDS ORDERED: ALBUTEROL 2.5 MG/3 ML NEB SOL ONE (18:23)
[2019-10-09] MEDS ORDERED: FAMOTIDINE 20 MG/2 ML VIAL IV ONE (18:47)
--- NOTE | 2019-10-09 19:12 | EDPHYS ---
Physician Documentation [facility] Name: Lyn Bautista Age: 24 yrs Sex: Female : 1995 Arrival Date: 10/09/2019 Time: 18:00 Bed 15 Private MD: ED Physician Parker Diaz HPI: 10/09 18:52 This 24 yrs old Female presents to ER via Ambulatory with complaints of tw4 Allergic Reaction, Breathing Difficulty. 18:52 The patient presents with redness of skin. Onset: The symptoms/episode began/occurred tw4 today. Associated signs and symptoms: Pertinent positives: shortness of breath. Possible causes: The patient has no known obvious cause for the symptoms. At home the patient or guardian has treated the symptoms with Benadryl. The patient has not experienced similar symptoms in the past. 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 - Coronavirus screen:: The patient has NOT traveled to [place] in the past 14 days. The patient has NOT had contact with known/suspected case of Coronavirus? Proceed with normal triage procedures. - Social history:: Smoking status: Patient denies any tobacco usage or history of. - Ebola Screening: : No symptoms or risks identified at this time. ROS: 18:52 Constitutional: Negative for fever, chills, and weight loss, Eyes: Negative for injury, tw4 pain, redness, and discharge, Cardiovascular: Negative for chest pain, palpitations, and edema, Respiratory: Negative for shortness of breath, cough, wheezing, and pleuritic chest pain, Abdomen/GI: Negative for abdominal pain, nausea, vomiting, diarrhea, and constipation, Back: Negative for injury and pain, MS/Extremity: Negative for injury and deformity. 18:52 Skin: Positive for rash. Exam: 18:52 Constitutional: This is a well developed, well nourished patient who is awake, alert, tw4 and in no acute distress. Head/Face: Normocephalic, atraumatic. Chest/axilla: Normal chest wall appearance and motion. Nontender with no deformity. No lesions are appreciated. Cardiovascular: Regular rate and rhythm with a normal S1 and S2. No gallops, murmurs, or rubs. Normal PMI, no JVD. No pulse deficits. Respiratory: Lungs have equal breath sounds bilaterally, clear to auscultation and percussion. No rales, rhonchi or wheezes noted. No increased work of breathing, no retractions or nasal flaring. Abdomen/GI: Soft, non-tender, with normal bowel sounds. No distension or tympany. No guarding or rebound. No evidence of tenderness throughout. 18:52 Skin: urticaria. Vital Signs: 18:11 BP 171 / 101; Pulse 114; Resp 20; Temp 97.8; Pulse Ox 100% on R/A; Weight 112.94 kg; hb Height 5 ft. 1 in. (154.94 cm); Pain 0/10; 18:56 BP 113 / 73; Pulse 100; Resp 17; Pulse Ox 97% ; bp 19:45 BP 115 / 74; Pulse 92; Resp 17; Pulse Ox 97% on R/A; rv 18:11 Body Mass Index 47.05 (112.94 kg, 154.94 cm) hb MDM: 18:14 Patient medically screened. tw4 18:52 Data reviewed: vital signs, nurses notes. Data interpreted: Pulse oximetry: tw4 Interpretation: normal. Counseling: I had a detailed discussion with the patient and/or guardian regarding: the historical points, exam findings, and any diagnostic results supporting the discharge/admit diagnosis. Medication response: albuterol nebulizer treatment(s) markedly relieved the patient's wheezing. Response to treatment: the patient's symptoms have resolved after treatment, and as a result, I will discharge patient. Special discussion: I discussed with the patient/guardian in detail that at this point there is no indication for admission to the hospital. It is understood, however, that if the symptoms persist or worsen the patient needs to return immediately for re-evaluation. Administered Medications: 18:15 Drug: SOLU-Medrol 125 mg Route: IVP; Site: right antecubital; bp 18:55 Follow up: Response: Marked relief of symptoms bp 18:15 Drug: Pepcid 20 mg Route: IVP; Site: right antecubital; bp 18:55 Follow up: Response: Marked relief of symptoms bp 18:15 Drug: Benadryl 25 mg Route: IVP; Site: right antecubital; bp 18:55 Follow up: Response: Marked relief of symptoms bp 18:15 Drug: Albuterol 2.5 mg Route: Inhalation; bp 18:29 CANCELLED (Duplicate Order): Benadryl 25 mg IVP once bp Disposition: 10/09/19 19:12 Discharged to Home. Impression: Urticaria, unspecified. - Condition is Stable. - Discharge Instructions: Allergies, Adult, Hives. - Prescriptions for Medrol (Nasir) 4 mg Oral Tablets, Dose Pack - take 1 tablet by ORAL route as directed - follow package instructions; 1 packet. Pepcid 20 mg Oral Tablet - take 1 tablet by ORAL route once daily; 20 tablet. - Medication Reconciliation Form, Thank You Letter, Antibiotic Education, Prescription Opioid Use form. - Follow up: Private Physician; When: Upon discharge from the Emergency Department; Reason: If symptoms return, Recheck today's complaints, Continuance of care, Re-evaluation by your physician. Signatures: Sepideh Arguelles, RN RN Wayne Ansari RN RN Parker Diaz MD MD tw4 Gerry Pereyra, RN RN rv Corrections: (The following items were deleted from the chart) 18:29 18:29 Benadryl 25 mg IVP once ordered. tw4 19:52 19:12 10/09/2019 19:12 Discharged to Home. Impression: Urticaria, unspecified. rv Condition is Stable. Forms are Medication Reconciliation Form, Thank You Letter, Antibiotic Education, Prescription Opioid Use. Follow up: Private Physician; When: Upon discharge from the Emergency Department; Reason: If symptoms return, Recheck today's complaints, Continuance of care, Re-evaluation by your physician. tw4
--- NOTE | 2019-10-09 19:12 | ER ---
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 Transition of care: patient was not received from another setting of care. Onset: The symptoms/episode began/occurred suddenly, 2 hour(s) ago. Onset of symptoms was October 09, 2019. Care prior to arrival: Medication(s) given: Benadryl x 2 at 1400. 18:09 Method Of Arrival: Ambulatory hb 18:09 Acuity: ADRYAN 3 hb 19:51 Risk Assessment: Do you want to hurt yourself or someone else? Patient reports no rv desire to harm self or others. Initial Sepsis Screen: Does the patient meet any 2 criteria? No. Patient's initial sepsis screen is negative. Does the patient have a suspected source of infection? No. Patient's initial sepsis screen is negative. Triage Assessment: 18:10 General: Appears distressed, comfortable, obese, Behavior is cooperative, appropriate bp for age, anxious. Pain: Denies pain. EENT: Reports HOARSE VOICE. Neuro: No deficits noted. Cardiovascular: Rhythm is sinus tachycardia. Respiratory: Reports shortness of breath Airway is patent Respiratory effort is even, unlabored, Respiratory pattern is tachypnea. GI: No signs and/or symptoms were reported involving the gastrointestinal system. : No signs and/or symptoms were reported regarding the genitourinary system. Derm: Reports itching. Musculoskeletal: No deficits noted. 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 - Coronavirus screen:: The patient has NOT traveled to [place] in the past 14 days. The patient has NOT had contact with known/suspected case of Coronavirus? Proceed with normal triage procedures. - Social history:: Smoking status: Patient denies any tobacco usage or history of. - Ebola Screening: : No symptoms or risks identified at this time. Screenin:10 Abuse screen: Denies threats or abuse. Denies injuries from another. Nutritional bp screening: No deficits noted. Tuberculosis screening: No symptoms or risk factors identified. Fall Risk None identified. Assessment: 18:10 General: SEE TRIAGE NOTE. Respiratory: Airway is patent Breath sounds are clear bp bilaterally. 18:54 Reassessment: Patient states symptoms have improved. Respiratory: Airway is patent bp Respiratory effort is even, unlabored, Respiratory pattern is regular, symmetrical. 19:46 Reassessment: lungs are clear. breathing is even and unlabored. discharge instructions rv given together with the prescriptions. Patient denies pain at this time. Patient states feeling better. Patient states symptoms have improved. Vital Signs: 18:11 BP 171 / 101; Pulse 114; Resp 20; Temp 97.8; Pulse Ox 100% on R/A; Weight 112.94 kg; hb Height 5 ft. 1 in. (154.94 cm); Pain 0/10; 18:56 BP 113 / 73; Pulse 100; Resp 17; Pulse Ox 97% ; bp 19:45 BP 115 / 74; Pulse 92; Resp 17; Pulse Ox 97% on R/A; rv 18:11 Body Mass Index 47.05 (112.94 kg, 154.94 cm) hb ED Course: 18:00 Patient arrived in ED. ag5 18:10 Triage completed. hb 18:10 Patient has correct armband on for positive identification. Bed in low position. Call bp light in reach. Side rails up X2. Adult w/ patient. Pulse ox on. NIBP on. 18:10 Inserted saline lock: 20 gauge in right antecubital area, using aseptic technique. bp 18:11 Arm band placed on. hb 18:12 Wayne Ansari, SIA is Primary Nurse. bp 18:14 Parker Diaz MD is Attending Physician. tw4 19:51 No provider procedures requiring assistance completed. IV discontinued, intact, rv bleeding controlled, No redness/swelling at site. Pressure dressing applied. Administered Medications: 18:15 Drug: SOLU-Medrol 125 mg Route: IVP; Site: right antecubital; bp 18:55 Follow up: Response: Marked relief of symptoms bp 18:15 Drug: Pepcid 20 mg Route: IVP; Site: right antecubital; bp 18:55 Follow up: Response: Marked relief of symptoms bp 18:15 Drug: Benadryl 25 mg Route: IVP; Site: right antecubital; bp 18:55 Follow up: Response: Marked relief of symptoms bp 18:15 Drug: Albuterol 2.5 mg Route: Inhalation; bp 18:29 CANCELLED (Duplicate Order): Benadryl 25 mg IVP once bp Outcome: 19:12 Discharge ordered by MD. caro 19:51 Discharged to home ambulatory, with family. rv 19:51 Condition: good 19:51 Discharge instructions given to patient, family, Instructed on discharge instructions, follow up and referral plans. medication usage, Demonstrated understanding of instructions, follow-up care, medications, Prescriptions given X 2. 19:52 Patient left the ED. 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 rv Patient denies pain at this time. Patient states feeling better. Patient states symptoms have improved. rv
[2019-10-09 21:39] VITALS: TEMP 97.8
[2019-10-09 21:40] VITALS: O2SAT 97
[2019-10-09 21:41] VITALS: BP 115/74
== END 2019-10-09 19:52 | disposition home or self-care (01) ==
LOC: ER 17:58
DX: L50.9 Urticaria, unspecified (principal); Z88.6 Allergy status to analgesic agent
CPT/HCPCS: 96375; 96374; 99285; J1200; J2930